=== PATIENT | female | born 1960 | race Caucasian/White ===

== ENCOUNTER → 2019-04-19 16:03 | Outpatient (BNVA) | payer BC, SELFPAY | PROVIDERS: PCP Nurse Practitioner Family; Visit Provider Otolaryngology | DX: E04.1 Nontoxic single thyroid nodule (principal); R47.02 Dysphasia | CPT/HCPCS: 99213; 99214 ==

== ENCOUNTER 2019-12-05 14:07 | Outpatient (CLI) | payer BC, SELFPAY | END 2019-12-05 14:08 | disposition home or self-care (01) | LOC: SPT 14:08 | PROVIDERS: PCP Nurse Practitioner Family; Visit Provider Orthopaedic Surgery | DX: Z46.89 Encounter for fitting and adjustment of other specified devices (principal); S52.501D Unspecified fracture of the lower end of right radius, subsequent encounter for closed fracture with routine healing; X58.XXXD Exposure to other specified factors, subsequent encounter | CPT/HCPCS: 97760; L3982 ==

== ENCOUNTER → 2019-12-12 11:41 | Outpatient (BNVA) | payer BC, SELFPAY | PROVIDERS: PCP Nurse Practitioner Family; Visit Provider Orthopaedic Surgery | DX: S52.501D Unspecified fracture of the lower end of right radius, subsequent encounter for closed fracture with routine healing (principal); W06.XXXD Fall from bed, subsequent encounter | CPT/HCPCS: 73110 ==

== ENCOUNTER → 2020-01-02 11:05 | Outpatient (BNVA) | payer BC, SELFPAY | PROVIDERS: PCP Nurse Practitioner Family; Visit Provider Orthopaedic Surgery | DX: Z47.89 Encounter for other orthopedic aftercare (principal); S52.501D Unspecified fracture of the lower end of right radius, subsequent encounter for closed fracture with routine healing; W06.XXXD Fall from bed, subsequent encounter | CPT/HCPCS: 73110 ==

== ENCOUNTER → 2020-01-30 11:35 | Outpatient (BNVA) | payer BC, SELFPAY | PROVIDERS: PCP Nurse Practitioner Family; Visit Provider Orthopaedic Surgery | DX: S52.501A Unspecified fracture of the lower end of right radius, initial encounter for closed fracture (principal) | CPT/HCPCS: 73110 ==

== ENCOUNTER 2020-02-05 12:01 | Outpatient (RCR) | payer BC, SELFPAY | END 2020-03-04 23:59 | disposition home or self-care (01) | LOC: SOT 12:01 | PROVIDERS: PCP Nurse Practitioner Family; Referring Provider Orthopaedic Surgery; Visit Provider Orthopaedic Surgery | DX: S52.501D Unspecified fracture of the lower end of right radius, subsequent encounter for closed fracture with routine healing (principal) | CPT/HCPCS: 97110; 97165 ==

== ENCOUNTER 2020-03-05 06:00 | Outpatient (RCR) | payer BC, SELFPAY | END 2020-03-05 23:00 | disposition home or self-care (01) | LOC: SOT 06:00 | PROVIDERS: PCP Nurse Practitioner Family; Referring Provider Orthopaedic Surgery; Visit Provider Orthopaedic Surgery | DX: S52.501D Unspecified fracture of the lower end of right radius, subsequent encounter for closed fracture with routine healing (principal); X58.XXXD Exposure to other specified factors, subsequent encounter | CPT/HCPCS: 97110 ==

== ENCOUNTER 2020-06-17 07:14 | Outpatient (CLI) | payer BC, SELFPAY ==
--- NOTE | 2020-06-17 07:20 | MM_ITS ---
WS: [id number] Bilateral screening digital mammogram, 06/17/2020 Clinical Data: SCREENING Comparison: 12/21/2017, 09/11/2015, 02/08/2014, 06/15/2013, 12/15/2012, 12/02/2012, 04/27/2007. Findings: The breast parenchymal pattern shows fibroglandular tissue No spiculated masses or clustered calcific ations are seen. There are no secondary signs of carcinoma. MM/[id number] Impression: 1. Negative bilateral mammogram unchanged. 2. Recommend annual screening mammograms. BIRADS: 1-Negative FOLLOW UP: 1 Year Follow-up The CAD price checker was used.
== END 2020-06-17 07:15 | disposition home or self-care (01) ==
LOC: RADSHAW 07:16
PROVIDERS: PCP Nurse Practitioner Family; Visit Provider Nurse Practitioner Family
DX: Z12.31 Encounter for screening mammogram for malignant neoplasm of breast (principal)
CPT/HCPCS: 77067

== ENCOUNTER 2021-12-29 07:19 | Outpatient (CLI) | payer OTHER, SELFPAY ==
--- NOTE | 2021-12-29 07:29 | MM_ITS ---
WS: [id number] VIEWS: MLO and CC views both breasts. 3D digital tomosynthesis is also included in this exam. Comparison made with prior exam of 12/15/2012, 06/15/2013, 09/11/2015, 06/17/2020.. Findings: A new 8 mm nodular density seen in the lateral lower quadrant of the left breast at posterior depth. No architectural distortion or suspicious calcification. There are no new findings in the right breas t. Compression spot views and regional ultrasound of the left breast would be indicated for further w orkup.Scattered fibroglandular densities are noted in both breasts. MM/[id number] Impression: BI-RADS: 0-Incomplete: Need additional imaging evaluation FOLLOW-UP: See Report This mammogram was also analyzed by the Computer Aided Detection System R2 [employer]ag e [employer]water Photographer.
== END 2021-12-29 07:20 | disposition home or self-care (01) ==
LOC: RAD 07:21
PROVIDERS: PCP Nurse Practitioner Family; Visit Provider Nurse Practitioner Family
DX: Z12.31 Encounter for screening mammogram for malignant neoplasm of breast (principal)
CPT/HCPCS: 77063; 77067

== ENCOUNTER 2022-01-05 12:38 | Outpatient (CLI) | payer OTHER, SELFPAY ==
--- NOTE | 2022-01-05 13:20 | MM_ITS ---
WS: [id number] LEFT 3D TOMOSYNTHESIS DIGITAL MAMMOGRAPHY WITH CAD CLINICAL INFORMATION: ABNORMAL MAMMO COMPARISON: December 29, 2021 TECHNIQUE: 3 views of the left breast were obtained. FINDINGS: History of breast reduction. Scattered fibroglandular densities of the left breast. Stable previously described 8 mm density lower outer quadrant LEFT breast. This partially compresses out on the spot compression views. Ultrasound described below. ULTRASOUND BREAST LEFT TECHNIQUE: Ultrasound left breast focused area of concern. CLINICAL INFORMATION: ABNORMAL MAMMO FINDINGS: Ultrasound LEFT breast at the 3-6 clock position. Incidental tiny cyst at 3:00 position 4 cm the nipp le measuring 2 x 2 mm. Ovoid echogenic lesion at the 6 clock position measuring 6.7 x 3.4 x 3.8 mm. This likely represents b enign lipoma or fibroadenolipoma. Recommend 6 month follow-up with ultrasound to confirm stability. MM/[id number] BI-RADS: 3-Probably Benign FOLLOW UP: 6 Month Follow-up Recommend 6 month follow-up LEFT breast ultrasound at the 6:00 position 3 cm fr om the nipple to confirm stability of the echogenic ovoid lesion
== END 2022-01-05 12:39 | disposition home or self-care (01) ==
PROVIDERS: PCP Nurse Practitioner Family; Visit Provider Nurse Practitioner Family
DX: R92.8 Other abnormal and inconclusive findings on diagnostic imaging of breast (principal)
CPT/HCPCS: 76642; 77061

== ENCOUNTER 2022-07-21 08:07 | Outpatient (CLI) | payer OTHER, SELFPAY ==
--- NOTE | 2022-07-21 | US_ITS ---
WS: [id number] ULTRASOUND BREAST LEFT TECHNIQUE: Ultrasound left breast focused area of concern. CLINICAL INFORMATION: 6MONTH F/U COMPARISON: January 05, 2022 FINDINGS: Ultrasound LEFT breast 6:00 position 3 cm from the nipple. Again seen is the echogenic ovoid lesion m easuring 3.6 x 4.3 x 4.3 mm unchanged compared to previous. 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 Stability is reassuring. Recommend return to annual screening mammography. US/US breast LT limited* [id number] IMPRESSION: BI-RADS 2 benign FOLLOW UP: Return to annual screening mammography
== END 2022-07-21 08:08 | disposition home or self-care (01) ==
LOC: RAD 08:08
PROVIDERS: PCP Nurse Practitioner Family; Visit Provider Nurse Practitioner Family
DX: R92.8 Other abnormal and inconclusive findings on diagnostic imaging of breast (principal)
CPT/HCPCS: 76642

== ENCOUNTER 2022-11-16 13:00 | Outpatient (CLI) | payer OTHER, SELFPAY | END 2022-11-16 13:01 | disposition home or self-care (01) | LOC: SLEEP 11-17 08:45 | PROVIDERS: PCP Nurse Practitioner Family; Visit Provider Nurse Practitioner Family | DX: G47.33 Obstructive sleep apnea (adult) (pediatric) (principal) | CPT/HCPCS: G0399 ==

== ENCOUNTER 2024-11-01 08:03 | Outpatient (CLI) | payer MEDICARE, OTHER, SELFPAY ==
--- NOTE | 2024-11-01 08:13 | MM_ITS ---
WS: [id number] BILATERAL SCREENING DIGITAL TOMOSYNTHESIS MAMMOGRAM WITH CAD HISTORY: SCREENING COMPARISON: 01/05/2022, 12/29/2021 and 06/17/2020 Bilateral CC and MLO views with tomosynthesis and synthetic mammography submitted. Computer aided detection analyzed. Breast composition: There are scattered areas of fibroglandular density. No suspicious masses, microcalcifications or architectural distortion. Benign calcification in the posterior LEFT breast. MM/MM scr BI tomosynthesis [id number] IMPRESSION: BI-RADS: 2 - Benign. FOLLOW UP: 1 Year Follow-up
== END 2024-11-01 08:04 | disposition home or self-care (01) ==
LOC: RAD 08:05
PROVIDERS: PCP Nurse Practitioner Family; Visit Provider Nurse Practitioner Family
DX: Z12.31 Encounter for screening mammogram for malignant neoplasm of breast (principal); R92.323 Mammographic fibroglandular density, bilateral breasts; R92.1 Mammographic calcification found on diagnostic imaging of breast
CPT/HCPCS: 77063; 77067

== ENCOUNTER → 2024-12-11 08:51 | Outpatient (BNVA) | payer MEDICARE, OTHER, SELFPAY | PROVIDERS: PCP Nurse Practitioner Family; Visit Provider Dermatology | DX: L82.1 Other seborrheic keratosis (principal); L57.8 Other skin changes due to chronic exposure to nonionizing radiation; D18.01 Hemangioma of skin and subcutaneous tissue; L57.0 Actinic keratosis | CPT/HCPCS: 17000; 99203 ==